=== PATIENT | female | born 1950 | race Caucasian/White ===

== ENCOUNTER → 2016-08-22 | Outpatient (CLI) | payer MEDICARE, BC ==
[~2016-08-22] MED LIST: ASPIRIN EC81 M1 PO; BENADRYL25 M1 PO; EFFEXOR-XR75 MG PO; FLOVENT DISKUS50 MCG INH; K-DUR10 MEQ PO; KLONOPIN0.5 M2 PO; LASIX20 MG PO; METAXALONE800 MG PO; MOBIC15 MG PO; MUCINEX D ER T1 EACH PO; ORAP2 MG PO; PERCOCET10 PO; PHENERGAN25 M1 PO; PRAVASTATIN SOD40 MG PO; PRINIVIL20 M1 PO; PROAIR HFA8.5 GM INH; SUMATRIPTAN SU100 MG PO
--- NOTE | ~2016-08-22 | EKG ---
PATIENT: MARIA D CARROLL UNIT #: [id number] Ventricular Rate: 96 BPM Atrial Rate: 96 BPM P-R Interval: 148 ms QRS Duration: 62 ms Q-T Interval: 342 ms QTC Calculation(Bezet): 432 ms P Lando: 68 degrees Calculated R Lando: -4 degrees Calculated T Lando: 73 degrees Diagnosis Line: Normal sinus rhythm Diagnosis Line: Inferior infarct , age undetermined Nonspecific ST Diagnosis Line: abnormality Diagnosis Line: Abnormal ECG Diagnosis Line: When compared with ECG of 22-MAR-2014 09:02, Diagnosis Line: Borderline criteria for Inferior infarct are now Diagnosis Line: Present Diagnosis Line: Confirmed by YENI JACKSON MD ([id number]) on 08/22/2016 Diagnosis Line: 5:27:51 PM INTERPRETING MD: RENETTA DAWN
[2016-08-22 14:41] LABS: CALCIUM SERUM 9.2 mg/dL (8.4-10.2); GLOM FILT RATE Estimated 59.1 mL/min (>60)
== END | disposition home or self-care (01) ==
LOC: CAMB 12:52
PROVIDERS: Surgery
DX: Z01.818 Encounter for other preprocedural examination (principal)
CPT/HCPCS: 36415; 80048; 93005

== ENCOUNTER → 2016-08-28 | Day surgery (SDC) | payer MEDICARE, BC ==
--- NOTE | ~2016-08-28 | OR ---
Unit #: [id number] #: [id number] Patient: MARIA D CARROLL [id number] [facility]. [place], [place] [address] [id number] MR#: [id number] NAME: MARIA D CARROLL ROOM: Date of Procedure: 08/28/2016 Admission Date: 08/28/2016 Surgeon: Luis Hurtado III, M.D. : 1950 Attending Physician: Luis Hurtado III, M.D. Primary Care Physician: Renee Todd A.P.R.N. OPERATIVE REPORT PREOPERATIVE DIAGNOSIS Lap band intolerance. POSTOPERATIVE DIAGNOSIS Lap band intolerance. PROCEDURE PERFORMED Laparoscopic removal of adjustable gastric band and port. PHOTOGRAPHER Dr. Darron Conklin. SPECIMENS None. COMPLICATIONS None apparent. ESTIMATED BLOOD LOSS Minimal. ANESTHESIA General endotracheal tube anesthesia. INDICATIONS FOR PROCEDURE This is a 66-year-old lady, who has been completely noncompliant with her lap band. She has no major problems other than she complains of some itching overlying her port. She desires to have her lap band removed. DESCRIPTION OF PROCEDURE After consent was obtained, the patient was brought to the operating room and placed in the supine position. General anesthetic was administered. Her abdomen was prepped and draped in standard surgical fashion. I made a 1 cm incision in the left upper quadrant using an Optiview to enter the peritoneal cavity without any difficulty. CO2 pneumoperitoneum was then established. Next, I made a 1-inch incision overlying her port. I dissected down, and was able to easily identify the port and I removed it from the surrounding tissue including this mesh and the stay suture. I then trimmed the excess band tubing. I then placed a 10-mm port at that location and I placed a 5-mm port in the left lateral subcostal region. I was able to easily follow the tubing up to the stomach. I did not have to use a Keith liver retractor because I could see the band adequately. Unit #: [id number] #: [id number] Patient: MARIA D CARROLL I scored the adhesions overlying the buckle of the band and once this was identified, I opened the band and then divided with Endo Lashell. I removed the two pieces of the band through the port site without dilatation of the fascia. I had excellent hemostasis. All needle, sponge, and instrument counts were correct x2. I removed all the trocars and released the pneumoperitoneum. I reapproximated the fascia at the port incision with interrupted 0 Vicryl suture and the skin edges were injected with 0.25% plain Marcaine and reapproximated with interrupted 4-0 Vicryl subcuticular suture. Steri-Strips were then applied. The patient tolerated the procedure without any problems and returned to the recovery room in stable condition. Dictated by... Luis Hurtado III, M.D. VCL/genny TD: 08/29/2016 13:54 JOB #: [id number] OPERATIVE REPORT Page 1 of 1 X uLis Hurtado III, MD PROCEDURE OPERATIVE NOTE
== END | disposition home or self-care (01) ==
LOC: CSUR 08:36
DX: K95.09 Other complications of gastric band procedure (principal); E66.01 Morbid (severe) obesity due to excess calories; I10 Essential (primary) hypertension; J44.9 Chronic obstructive pulmonary disease, unspecified; E78.5 Hyperlipidemia, unspecified; M19.90 Unspecified osteoarthritis, unspecified site; E78.00 Pure hypercholesterolemia, unspecified; G43.909 Migraine, unspecified, not intractable, without status migrainosus; G89.29 Other chronic pain; M54.9 Dorsalgia, unspecified; F41.9 Anxiety disorder, unspecified; F17.210 Nicotine dependence, cigarettes, uncomplicated; F32.9 Major depressive disorder, single episode, unspecified; Z91.19 Patient's noncompliance with other medical treatment and regimen; Z68.41 Body mass index [BMI] 40.0-44.9, adult; Z87.01 Personal history of pneumonia (recurrent); Z80.0 Family history of malignant neoplasm of digestive organs; Z88.5 Allergy status to narcotic agent; Z88.6 Allergy status to analgesic agent; Z88.8 Allergy status to other drugs, medicaments and biological substances; Z91.048 Other nonmedicinal substance allergy status; Z79.891 Long term (current) use of opiate analgesic; Z79.82 Long term (current) use of aspirin; Z79.51 Long term (current) use of inhaled steroids; Z79.899 Other long term (current) drug therapy; Z98.890 Other specified postprocedural states
CPT/HCPCS: J0330; J0690; J1650; J2250; J2710; J3010